=== PATIENT | male | born 1960 | race Caucasian/White ===

== ENCOUNTER 2018-08-30 16:32 | Emergency (ER) | payer MEDICARE, OTHER ==
[2018-08-30] MEDS ORDERED: NITROGLYCERIN 0.4 MG TAB.SUBL SL ONE (16:52)
--- NOTE | 2018-08-30 16:55 | ED Physician Documentation ---
Chest Pain - HISTORIAN Historian: patient - HPI Stated Complaint: chest pain Chief Complaint: Chest Pain Additional Information: Patient presents to ED via EMS after sudden onset of sharp, stabbing, substernal chest pain, 04/30, radiating to his left jaw while sitting watching TV today around 1400. He states he has had generalized weakness and nausea 2 days prior. He has a 35 pack year smoking history. He has no other medical problems. Onset: hours (2) Timing: sudden onset Duration: constant Last known Well Date: 08/30/18 Last Known Well Time: 14:00 Context: rest Severity: severe Quality: sharp, stabbing Chest Pain Radiation: jaw (left) Chest Pain Signs/Symptoms: nausea, other (bradycardia). denies: vomiting, diaphoresis Worsened By: exertion Relieved By: rest - ROS CONST: denies: fever MS/LYMPH: denies: calf pain, back pain GI/: nausea. denies: vomiting EYES/ENT: none SKIN/ENDO: none NEURO/PSYCH: none - PAST HX [place] risk factors: no pertinent history DVT/PE Risk Factors: none TAD/AAA risk factors: none Neuro deficit: none GI disease: none Lung disease: none Surgeries/Procedures: none Allergies/Adverse Reactions: Allergies Allergy/AdvReac Type Severity Reaction Status Date / Time No Known Allergies Allergy Verified 08/30/18 16:56 Home Medications: Ambulatory Orders Medication Instructions Recorded NK 08/30/18 - SOCIAL HX Smoking History: cigarettes, greater than 1 pack/day (35 pack year history) Alcohol Use: none Drug Use: none - FAMILY HX Family HX: none - VITAL SIGNS Vital Signs: Vital Signs Temp Pulse Resp BP Pulse Ox 150/76 05/22/14 10:20 - REVIEWED ASSESSMENTS Nursing Assessment Reviewed: Yes Vitals Reviewed: Yes Progress - Progress Progress: 1730 Patient still having substernal chest pain, unrelieved by nitro. Bradyc ardia 47 bpm 1735 Discussed with feed house supervisor Balaji for transfer. 174 Faxed EKGs faxed to Balaji 175 Accepted to Balaji directly to lab[facility] maintenance by Dr. Trejo. Orders to start nitro drip 1808 EMS arrived for transport. - EKG/XRAY/CT EKG: ST depression (AVL, V1, V2 ) Comments: Bradycardia - Additional EKG/XRAY/Consults Comments: Depressed T waves in AVL, V1, V2 flipped after nitro. Erlin 49 bpm ED Results Lab/Radiology - Orders Orders: ED Orders Category Date Time Status Continuous EKG monitoring Q30M Care 08/30/18 16:47 Active CBC/PLATELET/DIFF Routine Lab 08/30/18 Ordered CMP Routine Lab 08/30/18 Ordered TROPONIN I (cTnI) Stat Lab 08/30/18 Ordered Nitroglycerin [Nitroquick] Med 08/30/18 16:52 Once 0.4 mg SL NOW ONE EKG WITH COMPARISON Stat Ther 08/30/18 Ordered Chest Pain Physical Exam - EXAM General Appearance: no acute distress, alert EENT: ROBBIN Neck: No: JVD present Respiratory: no resp. distress, chest non-tender, nml breath sounds CVS: bradycardia (45 bpm) Abdomen: soft, normal bowel sounds Skin: warm/dry Extremities: non-tender, no edema Neuro: oriented X3 Discharge Clincal Impression: NSTEMI (non-ST elevated myocardial infarction) Referrals: Manuel Craven [REFERRING] - 2 Days Condition: Serious Disposition: 02 XFER SHT-TRM HOSP Decision to Admit: [id number] Date of Decison to Admit: 08/30/18 Decision Time: 18:12
[2018-08-30 17:01] LABS: MEAN CORPUSCULAR HEMOGLOBIN 32.3 pg (28.0-34.0)
[2018-08-30 17:02] LABS: BASOPHILS % 0.5 (0.0-1.5); EOSINOPHILS % 2.5 % (0.0-6.8); MONOCYTES % 4.7 % (0.0-11.0); NEUTROPHILS # 8.7 # k/uL (1.4-7.7)
[2018-08-30 17:08] LABS: eGFR (Non-African) > 60
[2018-08-30] MEDS ORDERED: MORPHINE SULFATE 4 MG/ML PREFILLED SYR IVP ONE (17:39)
[2018-08-30] MEDS ORDERED: NITROGLYCERIN IN 5 % DEXTROSE 50 MG/250 ML ML IV ONE (17:54)
[2018-08-30 18:25] VITALS: BP 118/68
--- NOTE | 2018-08-30 18:48 | Diagnostic Imaging Report ---
MARCOS NOBLES [facility] [id number] [facility] [address] [place], [place]. [address] Report Submission Date: Aug 30, 2018 5:58:57 PM RESIDENTIAL CARE FACILITY MANAGER Patient Study Name: JEREMIAH CRUMP Date: Aug 30, 2018 5:03:39 PM RESIDENTIAL CARE FACILITY MANAGER Modality Type: DX Gender: M Description: CHEST : 56 Institution: [facility] Physician: MARCOS NOBLES 2 views of the chest History: CHEST PAIN X 3 HRS AGO (Hx) / ITS.REASON chest pain No comparison studies Cardiac size upper limits of normal. Bibasilar opacities are present, small bilateral pleural effusions are possible. Thoracic spine degenerative changes Impression: 1. Bibasilar infiltrates. Bilateral small pleural effusions are possible. Recommend followup to resolution. Electronically signed on Aug 30, 2018 5:58:57 PM RESIDENTIAL CARE FACILITY MANAGER by: Hanna BATISTA
== END 2018-08-30 18:10 | disposition short-term general hospital (02) ==
LOC: ED 16:32
DX: I21.4 Non-ST elevation (NSTEMI) myocardial infarction (principal); F17.210 Nicotine dependence, cigarettes, uncomplicated
CPT/HCPCS: 71045; 80053; 84484; 85025; 93005; J2270; J3490; 96374; 99284; S1016

== ENCOUNTER 2018-09-29 12:54 | Emergency (ER) | payer OTHER ==
--- NOTE | 2018-09-29 12:57 | ED Physician Documentation ---
General Adult - HISTORIAN Historian: patient - HPI Stated Complaint: diarrhea x 6 hours Chief Complaint: Nausea,Vomiting,Diarrhea Onset: hours (6) Timing: still present Severity: mild Further Comments: yes (He states he has been exposed to a GI virus "although no one has had as much diarrhea as I have" He states "I have lost count" of the amount of diarrhea stools he has had. NO fever. No pain. No blood. He has had intake of water or fluids although feels this "just runs right through me") - ROS CONST: no problems - PAST HX Past History: AMI, hypertension Other History: none Immunizations: UTD Allergies/Adverse Reactions: Allergies Allergy/AdvReac Type Severity Reaction Status Date / Time No Known Allergies Allergy Verified 09/29/18 13:13 Home Medications: Ambulatory Orders Medication Instructions Recorded Aspirin [Aspirin EC] 81 mg PO D 09/13/18 Clopidogrel Bisulfate [Plavix] 75 mg PO D 09/13/18 Hydrochlorothiazide [Hydrodiuril] 12.5 mg PO HS 09/29/18 - SOCIAL HX Smoking History: cigarettes Alcohol Use: none Drug Use: none - FAMILY HX Family History: No - VITAL SIGNS Vital Signs: Vital Signs Temp Pulse Resp BP Pulse Ox 121/67 09/13/18 12:36 - REVIEWED ASSESSMENTS Nursing Assessment Reviewed: Yes Vitals Reviewed: Yes General Adult Physical Exam - PHYSICAL EXAM GENERAL APPEARANCE: no distress EENT: eye inspection normal, no signs of dehydration NECK: normal inspection RESPIRATORY: no resp distress, chest non-tender, breath sounds normal CVS: reg rate & rhythm, heart sounds normal ABDOMEN: soft, normal bowel sounds, no distension, non-tender BACK: normal inspection SKIN: warm/dry, normal color EXTREMITIES: non-tender, normal range of motion, no evidence of injury, no edema NEURO: oriented X3 Discharge Clincal Impression: Diarrhea Qualifiers: Diarrhea type: unspecified type Qualified Code(s): R19.7 - Diarrhea, unspecified Referrals: Primary Doctor,No [Primary Care Provider] - 2 Days Comments: 1. Lomotil 5 mg take 1 by mouth every 6 hours as needed for diarrhea x 2 days 2. If no improvement or intake decreases return to ER or call PCP 3. Increase fluids and bland diet 4. Return to ER for any increase in symptoms or change Condition: Stable Disposition: 01 HOME, SELF-CARE Decision to Admit: NO Date of Decison to Admit: 09/29/18 Decision Time: 13:29
[2018-09-29 13:45] VITALS: BP 155/84
== END 2018-09-29 13:38 | disposition home or self-care (01) ==
LOC: ED 12:54
DX: R19.7 Diarrhea, unspecified (principal)
CPT/HCPCS: 99281